=== PATIENT | female | born 1985 | race African-American/Black ===

== ENCOUNTER 2018-04-14 17:11 | Emergency (ER) | payer OTHER ==
--- NOTE | 2018-04-14 18:04 | PDOC ---
Rapid Medical Evaluation Time Seen by Provider: 04/14/18 17:58 Medical Evaluation: Allergies Allergy/AdvReac Type Severity Reaction Status Date / Time No Known Drug Allergies Allergy Verified 09/08/12 07:33 04/14/18 17:58 Pt presents to the ED BIBA with lower abdominal pain for two days. Patient had her period twice this month. Currently with vaginal bleeding. Lower pain. Took Advil with little relief. Denies fevers, chills, n/v/d, frequency, urgency, hematuria. Exam: TTP LLQ, suprapubic area, RLQ. AAOX3, ambulatory Orders: CBC, CMP, UA, Urine preg, IV insert Pt to proceed to the ED for further evaluation. Discharge Disposition - Diagnosis Abdominal pain - Referrals - Patient Instructions - Post Discharge Activity
[2018-04-14 18:08] VITALS: BP 145/93; PULSE 74; TEMP 98.1; BMI 35.4
== END 2018-04-14 19:38 | disposition left against medical advice (07) ==
LOC: JER 17:11
DX: Z53.21 Procedure and treatment not carried out due to patient leaving prior to being seen by health care provider (principal)
CPT/HCPCS: 99281-25